=== PATIENT | male | born 1985 | race Caucasian/White ===

== ENCOUNTER 2023-08-22 14:32 | Emergency (ER) | payer MEDICAID, OTHER ==
[~2023-08-22] VITALS: Ht 170.2 cm; Wt 69.0 kg
[2023-08-22 14:45] VITALS: BP 129/102; PULSE 74; RESP 14; TEMP 97.8; O2SAT 100
[2023-08-22 15:41] LABS: BASOPHILS % 0.5 % (0.0-2.0); EOSINOPHILS % 3.3 % (0.0-5.0); HEMATOCRIT. 45.7 % (42.0-52.0); HEMOGLOBIN. 15.4 g/dL (14.0-18.0); LYMPHOCYTES % 16.9 % (20.0-50.0); MEAN CORPUSCULAR HEMOGLOBIN 29.6 pg (28.0-32.0); MEAN CORPUSCULAR HGB CONC 33.7 g/dL (31.0-37.0); MEAN CORPUSCULAR VOLUME 87.8 fL (80.0-94.0); MEAN PLATELET VOLUME 9.4 fl (7.4-10.4); MONOCYTES % 10.2 % (2.0-8.0); NEUTROPHILS % 69.1 % (40.0-76.0); PLATELET 200 x1000/uL (130-400); RED CELL DISTRIBUTION WIDTH 13.8 % (11.6-14.6); WHITE BLOOD COUNT 6.5 x1000/uL (4.5-11.0)
[2023-08-22 15:50] LABS: INR 0.9; PROTHROMBIN TIME 10.1 sec (9.6-11.0)
[2023-08-22 15:55] LABS: ALANINE AMINOTRANSFERASE 239 IU/L (10-49); ALBUMIN 4.8 g/dL (3.2-4.8); ASPARTATE AMINOTRANSFERASE 61 IU/L (<34); CALCIUM 9.5 mg/dL (8.7-10.4); CARBON DIOXIDE 29 mEq/L (21-32); CHLORIDE 103 mEq/L (98-107); CREATININE 0.7 mg/dL (0.6-1.3); GLUCOSE 106 mg/dL (70-105); POTASSIUM 3.8 mEq/L (3.5-5.1); SODIUM 136 mEq/L (136-145); UREA NITROGEN BLOOD 15 mg/dL (9-23)
== END 2023-08-22 21:08 | disposition left against medical advice (07) ==
LOC: ER 14:32 → CANBEDREQ 21:07 → ER 21:08
DX: K85.90 Acute pancreatitis without necrosis or infection, unspecified (principal); R79.89 Other specified abnormal findings of blood chemistry; Z98.890 Other specified postprocedural states
CPT/HCPCS: 36415; 76705; 80053; 85025; 99284